=== PATIENT | male | born 1965 | race African-American/Black ===

== ENCOUNTER 2018-04-01 09:01 | Emergency (ER) | payer SELFPAY ==
[2018-04-01 10:22] LABS: #Basophils 0.1 thou/uL (0.0-0.2); #Eosinphils 0.2 thou/uL (0.0-0.7); #Monocytes 0.6 thou/uL (0.11-0.59); #Neutrophils 3.2 thou/uL (1.40-6.50); %Basophils 1.1 % (0.0-1.0); %Eosinophils 3.2 % (0.0-10.0); %Lymphocytes 20.7 % (21.0-51.0); Hemoglobin 14.3 g/dL (14.0-18.0); Mean Corpuscular HGB CONC 31.7 g/dL (32.0-36.0); Mean Corpuscular Hemoglobin 27.6 pg (27.0-31.0); Mean Corpuscular Volume 87.1 fl (80.0-94.0); Mean Platelet Volume 7.7 fL (7.4-10.4); Platelet Count 204 thou/uL (130-400); RBC Distribution Width 13.6 % (11.5-14.5); Red Blood Cell (RBC) Count 5.18 mill/uL (4.70-6.10); White Blood Cell (WBC) Count 4.9 thou/uL (4.8-10.8)
[2018-04-01 10:39] LABS: ALT (SGPT) 18 U/L (8-55); AST (SGOT) 19 U/L (5-34); Albumin 4.3 g/dL (3.5-5.0); Alkaline Phosphatase 71 U/L (40-150); Anion Gap 8 mmol/L (10-20); BUN (Urea Nitrogen) 13 mg/dL (8.4-25.7); Bilirubin, Total 0.4 mg/dL (0.2-1.2); Calc. Creatinine Clearance 0 mL/min (70-130); Calcium 9.6 mg/dL (7.8-10.44); Carbon Dioxide 25 mmol/L (22-29); Chloride 108 mmol/L (98-107); Estimated GFR-MDRD Greater than 90; Globulin 2.8 g/dL (2.4-3.5); Glucose 93 mg/dL (70-105); Potassium 4.5 mmol/L (3.5-5.1); Protein, Total 7.1 g/dL (6.0-8.3); Sodium 136 mmol/L (136-145)
--- NOTE | 2018-04-01 11:52 | RAD ---
CHEST PA AND LATERAL 2 VIEWS: HISTORY: A 52-year-old male with a history of cough and flu-like symptoms, abdominal pain, vomiting, chills, a nd diarrhea. FINDINGS: Heart size is within normal limits. The lungs are clear. No pneumonia, edema, or pleural effusion. IMPRESSION: No acute intrathoracic disease. POS: [facility]
[2018-04-01 11:59] LABS: Bilirubin Negative (Negative); Blood, Urine Small (Negative); Clarity CLEAR (Clear); Glucose, Urine (Dipstick) Negative (Negative); Leukocyte Negative (Negative); Nitrite Negative (Negative); Protein, Urine (Dipstick) Trace mg/dL (Neg-Trace); Urobilinogen 0.2 mg/dL (0.2-1.0)
[2018-04-01 12:01] LABS: Bacteria/HPF None Seen HPF (None Seen); Hyaline Casts/LPF 0-3 HYALINE CAST LPF (0-3 Hyaline); Pathc Cast-AUWi Flag 0.43 (0-2.49); RBC/HPF 0-3 HPF (0-3); Squamous Epithelial 0-3 HPF (0-3); WBC/HPF 0-3 HPF (0-3)
[2018-04-01 12:16] LABS: Crystals/HPF 1+ CA OXALATE HPF (Negative)
== END 2018-04-01 14:46 | disposition home or self-care (01) ==
LOC: ERS 09:01
DX: R05 Cough (principal); R31.9 Hematuria, unspecified; R19.7 Diarrhea, unspecified
CPT/HCPCS: 36415; 71046; 80053; 81003; 81015; 85025; 87804; 96360; 96361

== ENCOUNTER 2018-04-27 06:29 | Emergency (ER) | payer SELFPAY ==
[2018-04-27 07:43] LABS: #Lymphocytes 0.4 thou/uL (1.20-3.40); #Monocytes 0.2 thou/uL (0.11-0.59); #Neutrophils 2.6 thou/uL (1.40-6.50); %Eosinophils 0.3 % (0.0-10.0); %Lymphocytes 11.3 % (21.0-51.0); %Neutrophils 80.5 % (42.0-75.0); Hemoglobin 12.5 g/dL (14.0-18.0); Mean Corpuscular HGB CONC 33.1 g/dL (32.0-36.0); Mean Corpuscular Hemoglobin 27.2 pg (27.0-31.0); Mean Corpuscular Volume 82.3 fl (80.0-94.0); Mean Platelet Volume 8.3 fL (7.4-10.4); Platelet Count 133 thou/uL (130-400); RBC Distribution Width 12.5 % (11.5-14.5); Red Blood Cell (RBC) Count 4.58 mill/uL (4.70-6.10); White Blood Cell (WBC) Count 3.2 thou/uL (4.8-10.8)
[2018-04-27 08:04] LABS: ALT (SGPT) 39 U/L (8-55); AST (SGOT) 37 U/L (5-34); Albumin 3.7 g/dL (3.5-5.0); Alkaline Phosphatase 58 U/L (40-150); Anion Gap 13 mmol/L (10-20); BUN (Urea Nitrogen) 13 mg/dL (8.4-25.7); Bilirubin, Total 0.3 mg/dL (0.2-1.2); CK (CPK) 200 U/L (30-200); Calc. Creatinine Clearance 0 mL/min (70-130); Carbon Dioxide 24 mmol/L (22-29); Chloride 97 mmol/L (98-107); Estimated GFR-MDRD 80; Globulin 2.7 g/dL (2.4-3.5); Glucose 109 mg/dL (70-105); Lipase 190 U/L (8-78); Potassium 3.6 mmol/L (3.5-5.1); Protein, Total 6.4 g/dL (6.0-8.3); Sodium 130 mmol/L (136-145)
[2018-04-27 08:08] LABS: CKMB 0.6 ng/mL (0-6.6); Troponin I Less than 0.010 ng/mL (< 0.028)
--- NOTE | 2018-04-27 08:48 | RAD ---
CHEST 1 VIEW: Date: 04/27/18 HISTORY: Dyspnea. COMPARISON: 04/01/18. FINDINGS: Cardiac silhouette is magnified by projection. Pulmonary vasculature are upper limits of normal. Medi astinum midline. No lobar consolidation or evidence of pneumothorax. back end web developer leads overlie th e chest. IMPRESSION: No active cardiopulmonary abnormalities are demonstrated. POS: [facility]
--- NOTE | 2018-04-27 09:16 | CT ---
ABDOMEN AND PELVIS CT SCAN WITH IV CONTRAST: HISTORY: A 52-year-old male with a history of lower back pain, upper extremity pain, and shortness of breath. FINDINGS / IMPRESSION:: Scattered small bullous emphysema changes are noted in both lungs. The liver, gallbladder, pancreas, spleen, and adrenal glands are unremarkable. No renal calculus or acute obstruction. No CT evid ence for acute appendicitis. No abscess, adenopathy, or abnormal fluid collection. No acute process. POS: [facility]
--- NOTE | 2018-04-27 09:37 | CT ---
CT PULMONARY ANGIO CHEST INCLUDING 3D RENDERING: Date: 04/27/18 HISTORY: 52-year-old male with history of back pain, upper extremity pain, and shortness of breath. Patient is an active tobacco user. FINDINGS: No evidence for central pulmonary artery thrombosis. Some of the more peripheral branches, particular ly in the mid and lower lung zones, are somewhat less than optimally imaged because of motion artifac t and contrast bolus. No significant CT evidence for acute pulmonary embolism. No pleural effusion or pericardial effusion. No acute pulmonary parenchymal process. No mediastinal mass or adenopathy. IMPRESSION: No significant CT evidence for acute pulmonary embolism, although some of the peripheral branches, pa rticularly in the lower and mid lung zones, are somewhat less than optimally imaged. POS: [facility]
[2018-04-27] MEDS ORDERED: ISOVUE-370 76%-LOCM 1 ML ONE (12:55)
== END 2018-04-27 09:26 | disposition home or self-care (01) ==
LOC: ERS 06:29
DX: G56.03 Carpal tunnel syndrome, bilateral upper limbs (principal); R74.8 Abnormal levels of other serum enzymes
CPT/HCPCS: 36415; 71045; 71275; 74177; 80053; 82553; 83690; 84443; 84484; 85025; 85379; 93005; 94640; J7620

== ENCOUNTER 2020-12-27 08:37 | Emergency (ER) | payer SELFPAY ==
[2020-12-27 09:08] LABS: #Eosinphils 0.1 thou/uL (0.0-0.7); #Lymphocytes 0.9 thou/uL (1.20-3.40); #Monocytes 0.5 thou/uL (0.11-0.59); #Neutrophils 3.8 thou/uL (1.40-6.50); %Basophils 0.3 % (0.0-1.0); %Eosinophils 2.2 % (0.0-10.0); %Lymphocytes 17.2 % (21.0-51.0); %Monocytes 10.1 % (0.0-10.0); %Neutrophils 70.2 % (42.0-75.0); Hemoglobin 12.3 g/dL (14.0-18.0); Mean Corpuscular HGB CONC 31.8 g/dL (32.0-36.0); Mean Corpuscular Hemoglobin 27.4 pg (27.0-31.0); Mean Corpuscular Volume 86.2 fL (78.0-98.0); Mean Platelet Volume 8.3 fL (7.4-10.4); Platelet Count 154 thou/uL (130-400); RBC Distribution Width 13.9 % (11.5-14.5); Red Blood Cell (RBC) Count 4.48 mill/uL (4.70-6.10); White Blood Cell (WBC) Count 5.4 thou/uL (4.8-10.8)
[2020-12-27] MEDS ORDERED: Aspirin Chewable 81 MG TAB ONE (09:20)
[2020-12-27] MEDS ORDERED: PROVENTIL INHALER 6.7 G (200 INHALATIONS) ONE (09:21)
[2020-12-27 09:24] LABS: ALT (SGPT) 13 U/L (8-55); AST (SGOT) 16 U/L (5-34); Albumin 3.9 g/dL (3.5-5.0); Alkaline Phosphatase 74 U/L (40-110); Anion Gap 11 mmol/L (10-20); BUN (Urea Nitrogen) 12 mg/dL (8.4-25.7); Bilirubin, Total 0.2 mg/dL (0.2-1.2); CK (CPK) 184 U/L (30-200); Calc. Creatinine Clearance 0 mL/min (70-130); Calcium 8.8 mg/dL (7.8-10.44); Carbon Dioxide 24 mmol/L (22-29); Chloride 108 mmol/L (98-107); Globulin 2.8 g/dL (2.4-3.5); Glucose 108 mg/dL (70-105); Lipase 11 U/L (8-78); Potassium 4.4 mmol/L (3.5-5.1); Protein, Total 6.7 g/dL (6.0-8.3); Sodium 139 mmol/L (136-145)
--- NOTE | 2020-12-27 09:37 | RAD ---
PORTABLE CHEST 1 VIEW: Date; 12/27/2020 Time: 0852 hours HISTORY: Nausea, vomiting, and diarrhea. Right-sided chest pain and dry cough. COMPARISON: 04/27/2018. FINDINGS: The heart size is normal. The lungs are expanded without lobar consolidation, pneumothoraces, or pleu ral effusions. IMPRESSION: No radiographic evidence of acute cardiopulmonary process. POS: [facility]
[2020-12-27] MEDS ORDERED: Albuterol 200 PUFF (6.7GM INHALER) INH SCH (10:00)
[2020-12-27] MEDS ORDERED: Albuterol 200 PUFF (6.7GM INHALER) ONE (10:26)
[2020-12-27] MEDS ORDERED: Ondansetron ODT 4 MG TAB ONE (10:42)
[2020-12-27] MEDS ORDERED: Ondansetron PF 4 MG/2 ML Vial ONE (10:44)
[2020-12-27 10:53] LABS: Bilirubin Negative (Negative); Blood, Urine Negative (Negative); Clarity Clear (Clear); Glucose, Urine (Dipstick) Normal (Negative); Ketone, Urine Negative (Negative); Leukocyte Negative Leu/uL (Negative); Nitrite Negative (Negative); Protein, Urine (Dipstick) Negative (Neg-Trace); Specific Gravity, Urine 1.013 (1.002-1.036); Urobilinogen Normal mg/dL (Less than 2); pH, Urine 7.5 (5.0-9.0)
== END 2020-12-27 11:44 | disposition home or self-care (01) ==
LOC: ERS 08:37
DX: J06.9 Acute upper respiratory infection, unspecified (principal); R11.2 Nausea with vomiting, unspecified
CPT/HCPCS: 71045; 80053; 81003; 82550; 83690; 84484; 85025; 93005; 96374; J2405; Q0162

== ENCOUNTER 2021-02-05 16:52 | Emergency (ER) | payer SELFPAY | END 2021-02-05 18:30 | disposition home or self-care (01) | LOC: ERS 16:52 | DX: R51.9 Headache, unspecified (principal); M54.41 Lumbago with sciatica, right side | CPT/HCPCS: 99283 ==

== ENCOUNTER 2021-11-29 18:53 | Emergency (ER) | payer SELFPAY ==
[2021-11-29 19:19] LABS: Actual Bicarbonate (HCO3a) 25.3 mEq/L (22-28); Analyzer IN Cardio ER; CO2 Tension 35.3 mmHg (35.0-45.0); Calcium, Ionized (arterial) 1.16 mmol/L (1.12-1.30); Carboxyhemoglobin (COHb) 0.8 gm% (0.0-3.0); O2 Tension (PaO2), arterial 88.8 mmHg (80.0-100.0); Potassium - ABG Lab 3.63 mmol/L (3.70-5.30); pH, Arterial 7.47 (7.35-7.45)
[2021-11-29 19:20] LABS: Puncture Site RRA
[2021-11-29 19:24] LABS: ALV-art Gradient 16.805 mmHg (0-20)
[2021-11-29 19:34] LABS: #Eosinphils 0.1 thou/uL (0.0-0.7); #Lymphocytes 0.8 thou/uL (1.20-3.40); #Monocytes 0.5 thou/uL (0.11-0.59); #Neutrophils 1.9 thou/uL (1.40-6.50); %Basophils 0.7 % (0.0-1.0); %Eosinophils 3.1 % (0.0-10.0); %Lymphocytes 25.2 % (21.0-51.0); %Monocytes 13.5 % (0.0-10.0); %Neutrophils 57.6 % (42.0-75.0); Hemoglobin 12.4 g/dL (14.0-18.0); Mean Corpuscular HGB CONC 32.5 g/dL (32.0-36.0); Mean Corpuscular Volume 86.3 fL (78.0-98.0); Mean Platelet Volume 7.5 fL (7.4-10.4); Platelet Count 180 thou/uL (130-400); RBC Distribution Width 13.8 % (11.5-14.5); Red Blood Cell (RBC) Count 4.41 mill/uL (4.70-6.10); White Blood Cell (WBC) Count 3.3 thou/uL (4.8-10.8)
[2021-11-29 19:54] LABS: Alcohol Less than 10 mg/dL (Less than 10); Salicylate Less than 8.0 mg/dL (15.0-30.0)
[2021-11-29 19:56] LABS: ALT (SGPT) 13 U/L (8-55); AST (SGOT) 17 U/L (5-34); Albumin 3.8 g/dL (3.5-5.0); Alcohol Less than 10 mg/dL (Less than 10); Alkaline Phosphatase 73 U/L (40-110); Anion Gap 10 mmol/L (10-20); BUN (Urea Nitrogen) 10 mg/dL (8.4-25.7); Bilirubin, Total 0.5 mg/dL (0.2-1.2); CK (CPK) 219 U/L (30-200); Calc. Creatinine Clearance 0 mL/min (70-130); Calcium 9.1 mg/dL (7.8-10.44); Carbon Dioxide 27 mmol/L (22-29); Chloride 107 mmol/L (98-107); Globulin 2.9 g/dL (2.4-3.5); Potassium 3.6 mmol/L (3.5-5.1); Protein, Total 6.7 g/dL (6.0-8.3); Sodium 140 mmol/L (136-145)
[2021-11-29 20:03] LABS: Glucose 57 mg/dL (70-105)
[2021-11-29 20:34] LABS: Bilirubin Negative (Negative); Blood, Urine Negative (Negative); Clarity Clear (Clear); Glucose, Urine (Dipstick) Normal (Negative); Ketone, Urine Negative (Negative); Leukocyte Negative Leu/uL (Negative); Nitrite Negative (Negative); Protein, Urine (Dipstick) 20 mg/dL (Neg-Trace); Specific Gravity, Urine 1.034 (1.002-1.036); pH, Urine 6.5 (5.0-9.0)
[2021-11-29 20:43] LABS: Amphetamine Detected (NotDetected); Barbiturates Screen Not Detected (NotDetected); Benzodiazepine Screen Not Detected (NotDetected); Cocaine Metabolite Screen Detected (NotDetected); Methadone Not Detected (NotDetected); Methamphetamine Detected (NotDetected); Opiate Screen Not Detected (NotDetected); Oxycodone Screen Not Detected (NotDetected); Phencyclidine (PCP) Not Detected (NotDetected); THC/Cannabinoid Screen Detected (NotDetected); Tricyclic Screen Not Detected (NotDetected)
[2021-11-29 21:12] LABS: SARS-CoV-2 NAA Rapid Test Not Detected (NotDetected)
[2021-11-29] MEDS ORDERED: Adenosine 6 MG/2 ML VIAL ONE (23:20)
[2021-11-30] MEDS ORDERED: traZODone HCl 50 MG TAB ONE (05:41)
== END 2021-11-30 20:10 | disposition psychiatric hospital, planned readmission (93) ==
LOC: ERS 18:53
DX: T40.5X2A Poisoning by cocaine, intentional self-harm, initial encounter (principal); F17.290 Nicotine dependence, other tobacco product, uncomplicated; Z20.822 Contact with and (suspected) exposure to COVID-19
CPT/HCPCS: 36415; 36416; 36600; 71045; 80053; 80306; 80307; 81003; 82550; 82805; 84443; 85025; 93005; J0153; U0002

== ENCOUNTER 2025-11-13 11:52 | Emergency (ER) | payer SELFPAY ==
[2025-11-13] MEDS ORDERED: Ketorolac Tromethamine 30 MG (1 mL) VIAL ONE (13:17)
[2025-11-13] MEDS ORDERED: Cyclobenzaprine 10 MG TAB ONE (13:18)
== END 2025-11-13 13:31 | disposition home or self-care (01) ==
LOC: ERS 11:52
DX: M54.31 Sciatica, right side (principal)
CPT/HCPCS: 96372; J1885

== ENCOUNTER 2025-11-15 01:29 | Emergency (ER) | payer SELFPAY ==
[2025-11-15] MEDS ORDERED: Aspirin Chewable 81 MG TAB ONE (01:47)
[2025-11-15] MEDS ORDERED: HYDROcodone/Acetaminophen 5/325 mg Tablet ONE (01:47)
[2025-11-15 02:12] LABS: #Basophils 0.04 10x3/uL (0.0-0.2); #Eosinophils 0.12 10x3/uL (0.0-0.7); #Monocytes 0.65 10x3/uL (0.11-0.59); #Neutrophils 6.34 10x3/uL (1.40-6.50); %Basophils 0.5 % (0.0-1.0); %Eosinophils 1.5 % (0.0-10.0); %Lymphocytes 13.2 % (21.0-51.0); %Monocytes 7.9 % (0.0-10.0); %Neutrophils 76.8 % (42.0-75.0); Hematocrit 38.6 % (42.0-52.0); Hemoglobin 12.0 g/dL (14.0-18.0); Mean Corpuscular Hemoglobin 25.2 pg (27.0-31.0); Mean Corpuscular Volume 81.1 fL (78.0-98.0); Platelet Count 186 10x3/uL (130-400); Red Blood Cell (RBC) Count 4.76 mill/uL (4.70-6.10); White Blood Cell (WBC) Count 8.25 10x3/uL (4.8-10.8)
[2025-11-15 02:29] LABS: ALT (SGPT) 21 U/L (Less than 45); AST (SGOT) 38 U/L (11-34); Albumin 4.1 g/dL (3.1-4.5); Alkaline Phosphatase 71 U/L (40-110); Anion Gap 15 mmol/L (10-20); BUN (Urea Nitrogen) 17 mg/dL (8.4-25.7); Bilirubin, Total 0.9 mg/dL (0.3-1.2); Calc. Creatinine Clearance 0 mL/min (70-130); Calcium 9.5 mg/dL (7.8-10.44); Carbon Dioxide 24 mmol/L (23-31); Chloride 105 mmol/L (98-107); Globulin 3.1 g/dL (2.4-3.5); Glucose 89 mg/dL (80-115); Lipase 8 U/L (8-78); Magnesium 1.9 mg/dL (1.6-2.6); Potassium 3.9 mmol/L (3.5-5.1); Sodium 140 mmol/L (136-145)
== END 2025-11-15 05:10 | disposition home or self-care (01) ==
LOC: ERS 01:29
DX: R07.89 Other chest pain (principal); M54.31 Sciatica, right side; F17.210 Nicotine dependence, cigarettes, uncomplicated
CPT/HCPCS: 71045; 72170; 80053; 83690; 83735; 84484; 85025; 93005; 96374; J2919